=== PATIENT | male | born 1950 | race Native Hawaiian/Other Pacific Islander ===

== ENCOUNTER 2018-04-23 21:27 | Emergency (ER) | payer OTHER ==
[~2018-04-23] VITALS: Ht 172.7 cm; Wt 73.0 kg
[2018-04-23 22:12] LABS: PLATELET COUNT 302 K/uL (142-355)
[2018-04-23 22:19] LABS: POTASSIUM 3.1 mmol/L (3.6-5.2)
[2018-04-24 00:10] VITALS: BP 130/66; TEMP 98
== END 2018-04-24 00:20 | disposition home or self-care (01) ==
LOC: ED 21:27
PROVIDERS: Emergency Medicine
DX: R07.89 Other chest pain (principal); R00.1 Bradycardia, unspecified
CPT/HCPCS: 36415; 80053; 82550; 83690; 84484; 85027; 93005; 96374; 99284; J1885